=== PATIENT | female | born 1970 | race Caucasian/White ===

== ENCOUNTER 2017-12-11 13:49 | Emergency (ER) | payer BC ==
[~2017-12-11 13:49] MED LIST: ACE3 PO; ACE500 PO; ALB17R INH; AMO500 PO; AMOX-362 PO; AUG500 PO; AUG875 PO; BACDS PO; BEN20 PO; BENA10TA4 PO; CEP500 PO; CLI150 PO; CLO5 PO; CLOT15CR62 TP; CODE473S6 FT; DAR100 PO; DIP25 PO; DIP5L PO; DIPH-740 PO; DOXY150T2 PO; DUL30 PO; ETHI1TAB26 PO; GUAI1CAP92 PO; GUAI480S48 PO; HYDR-3072 PO; IBU600 PO; IBUP200C71 PO; KET10 PO; LEVO1TAB48 PO; LOR5 PO; LORA-1221 PO; MED10 PO; METH4TAB57 PO; MULT-1335 PO; MULT1CAP41 PO; OCU PO; OND4 PO; ONDA4TAB PO; OXY5 PO; OXYB15TA14 PO; OXYB5TAB86 PO; PAN40 PO; PAR20 PO; PHEN100T27 PO; PHEN200T32 PO; PHENA200 PO; PRE20 PO; PREDNISONE; PRO25 PO; QUE25 PO; SULF-198 PO; TOLT4CAP13 PO; [UNRECOGNIZED DRUG - CODE] OP; [UNRECOGNIZED DRUG - CODE] PO
[2017-12-11 13:53] VITALS: BP 138/89
--- NOTE | 2017-12-11 13:54 | ER Report ---
History and Physical Time Seen By MD: 13:55 HPI/ROS CHIEF COMPLAINT: Dental abscess HISTORY OF PRESENT ILLNESS: Patient is a 47-year-old female who presents to ED with complaint of a possible dental abscess on her right lower molar area. She states that she has been having pain in this area for the past week. She started noticing swelling. She states that she fractured a tooth in this area long time ago. She states she has not been seeing a dentist regularly. Patient denies any fever. She states that she has been taking some Tylenol and swishing hydrogen peroxide with some minimal relief. REVIEW OF SYSTEMS: Respiratory: No cough, no dyspnea. Cardiovascular: No chest pain, no palpitations. Gastrointestinal: No vomiting, no abdominal pain. Musculoskeletal: No back pain. Allergies: Coded Allergies: ciprofloxacin (Verified Allergy, Mild, 12/11/17) erythromycin base (Verified Allergy, Mild, 12/11/17) Home Meds Active Scripts Oxybutynin Chloride (OXYBUTYNIN CHLORIDE ER) 15 Mg Tab.er.24, 15 MG PO QDAY, # 90 TAB.SA 3 Refills Prov:ESTUARDO JOY MD 10/17/17 Levonorgestrel-Eth Estradiol (LUTERA) 1 Each Tablet, 1 TAB-CAP PO QDAY, #3 PACK 4 Refills Prov:ESTUARDO JOY MD 10/17/17 Benazepril Hcl (BENAZEPRIL HCL) 10 Mg Tab, 10 MG PO QDAY, #90 TAB 3 Refills Prov:ESTUARDO JOY MD 10/17/17 Reported Medications Multivitamin With Minerals (MULTIPLE VITAMIN) 1 Each Tablet, 1 EACH PO, TAB 10/17/17 Ibuprofen (IBUPROFEN) 200 Mg Capsule, 1 CAP PO Q6H Y for pain, CAPSULE 06/19/17 Diphenhydramine Hcl (BENADRYL) Unknown Strength Capsule, PO Q6-8H Y for itching , CAPSULE 06/19/17 Reviewed Nurses Notes: Yes Old Medical Records Reviewed: Yes Hx Smoking: No Smoking Status: Never Smoker Exposure to Second Hand Smoke?: No Hx Substance Use Disorder: No Hx Alcohol Use: No Constitutional Vital Sign - Last 24 Hours 12/11/17 13:53 Temp 97.8 Pulse 96 Resp 16 B/P (MAP) 138/89 Pulse Ox 94 O2 Delivery Room Air Physical Exam General Appearance: The patient is alert, has no immediate need for airway protection and no signs of toxicity. She appears to be in no acute distress. ENT, Mouth: Mucous membranes are moist. There is poor dentition throughout. There is a fractured, brown discolored molar on the right lower side. There appears to be some swelling around this area. There is pain with palpation of this area. Respiratory: There are no retractions, lungs are clear to auscultation. Cardiovascular: Regular rate and rhythm. Skin: Warm and dry, no rashes. Musculoskeletal: Neck is supple non tender. No cervical lymphadenopathy appreciated. Extremities are nontender, nonswollen and have full range of motion. Medical Decision Making ED Course/Re-evaluation ED Course The presentation is a dental abscess in the right lower molar. Will prescribe her some amoxicillin and Tylenol 3 for pain relief. She needs to follow up with dentist as soon as possible. Decision to Disposition Date: Dec 11, 2017 Decision to Disposition Time: 14:04 Depart Departure Latest Vital Signs Vital Signs Date Time Temp Pulse Resp B/P (MAP) Pulse Ox O2 Delivery O2 Flow Rate FiO2 12/11/17 13:53 97.8 96 16 138/89 94 Room Air Impression: Primary Impression: Dental abscess Condition: Improved Disposition: HOME OR SELF-CARE Referrals: ESTUARDO JOY MD (PCP) New Scripts Acetaminophen With Codeine # 3 (TYLENOL WITH CODEINE #3 TABLET) 1 Each Tablet 1 EACH PO Q6H Y for prn, #10 TAB Prov: KATIE MACEDO PA-C 12/11/17 Amoxicillin 500 Mg Tab (AMOXICILLIN 500 MG TAB) 500 Mg Tablet 1 TAB PO Q8H for 10 Days, #30 TAB Prov: KATIE MACEDO PA-C 12/11/17 Patient Instructions: Dental Abscess (ED) Additional Instructions: Stay well-hydrated. Take antibiotics as prescribed. Follow-up with dentist as soon as possible. If having any worsening or concerning symptoms may return to the emergency department. KATIE MACEDO PA-C Dec 11, 2017 13:54
[2017-12-11] MEDS ORDERED: AMOX500T10 PO (14:05)
[2017-12-11] MEDS ORDERED: ACET-3017 PO (14:05)
== END 2017-12-11 14:17 | disposition home or self-care (01) ==
LOC: ER 14:02
DX: K04.7 Periapical abscess without sinus (principal)
CPT/HCPCS: 99282

== ENCOUNTER → 2018-10-18 | Outpatient (CLI) | payer BC ==
[~2018-10-18] MED LIST changes: +ACET-3017 PO; +AMOX500T10 PO; -BENA10TA4 PO; +BENA10TA55 PO; +IBUP-136 PO; -IBUP200C71 PO; +SERT-184 PO
[2018-10-18 10:41] LABS: PLATELET COUNT, AUTOMATED 364 K/uL (150-450)
[2018-10-18 10:58] LABS: LDL CHOLESTEROL 58 mg/dl
== END ==
LOC: LAB 10:15
PROVIDERS: ATTEND Internal Medicine
DX: Z00.00 Encounter for general adult medical examination without abnormal findings (principal); I10 Essential (primary) hypertension; F41.9 Anxiety disorder, unspecified; F32.9 Major depressive disorder, single episode, unspecified
CPT/HCPCS: 36415; 81001; 82040; 82247; 82310; 82374; 82435; 82465; 82565; 82947; 83718; 84075; 84132; 84155; 84295; 84443; 84450; 84460; 84478; 84520; 85025